=== PATIENT | male | born 1990 | race Caucasian/White ===

== ENCOUNTER 2017-08-31 10:21 | Day surgery (SDC) | payer OTHER ==
[2017-08-31] MEDS ORDERED: ceFAZolin 2 GM/SWFI 2 GM/20 ML SYR IVP ONE (10:29)
--- NOTE | 2017-08-31 10:31 | PDHPUP ---
History & Physical Update H&P update statement: This history and physical update is based on an assessment of the patient which was completed after admission or registration (within 24 hours), but prior to the surgery/procedure. H&P update: H&P reviewed & patient examined
[2017-08-31] MEDS ORDERED: LR 1,000 ML IV ONE (10:47)
[2017-08-31] MEDS ORDERED: LIDOCAINE 1% 2 ML INJ ID PRN (10:47)
--- NOTE | 2017-08-31 11:01 | PDANEPAE ---
ANE History of Present Illness right parotid tumor ANE Past Medical History - Cardiovascular History Hx Hypertension: No Hx Arrhythmias: No Hx Chest Pain: No Hx Coronary Artery / Peripheral Vascular Disease: No Hx CHF / Valvular Disease: No Hx Palpitations: No - Pulmonary History Hx COPD: No Hx Asthma/Reactive Airway Disease: No Hx Recent Upper Respiratory Infection: No Hx Oxygen in Use at Home: No Hx Sleep Apnea: No - Neurologic History Hx Cerebrovascular Accident: No Hx Seizures: No Hx Dementia: No - Endocrine History Hx Diabetes: No - Renal History Hx Renal Disorders: No - Liver History Hx Hepatic Disorders: No - Neurological & Psychiatric Hx Hx Neurological and Psychiatric Disorders: No - Cancer History Hx Cancer: No - Congenital Disorder History Hx Congenital Disorders: No - GI History Hx Gastrointestinal Disorders: No - Other Health History Other Health History: none - Chronic Pain History Chronic Pain: Yes (lower back) - Surgical History Prior Surgeries: none ANE Review of Systems Review of systems is: negative Review of Systems: - Exercise capacity Exercise capacity: >=4 METS METS (RN): 6 METS ANE Patient History - Allergies Allergies/Adverse Reactions: No Known Allergies Allergy (Verified 08/24/17 10:15) - Home Medications Home Medications: Ibuprofen [Motrin (*)] 200 - 600 mg PO DAILY PRN 08/24/17 [Last Taken 08/17/17] - NPO status NPO Status: no food or drink >8 hours - Anes Hx Anes Hx: no prior problems - Smoking Hx Smoking Status: Never smoked - Alcohol Use Alcohol Use: Occasionally - Family Anes Hx Family Anes Hx: none Family Hx Anesthesia Complications: none ANE Labs/Vital Signs - Vital Signs Vital Signs: reviewed preoperatively; see RN documention for details Height: 182.88 cm Weight: 70.307 kg ANE Physical Exam - Airway Neck exam: FROM Mallampati Score: Class 1 Mouth exam: normal dental/mouth exam - Pulmonary Pulmonary: no respiratory distress - Cardiovascular Cardiovascular: regular rate and rhythym - ASA Status ASA Status: I ANE Anesthesia Plan Anesthesia Plan: general endotracheal anesthesia
[2017-08-31] MEDS ORDERED: MIDAZOLAM 2 MG/2 ML VIAL IVP ONE (11:02)
[2017-08-31] MEDS ORDERED: MUPIROCIN 2% 22 GM OINT ONE (11:26)
[2017-08-31] MEDS ORDERED: LIDOCAINE 2% 5 ML SDV ONE (11:31)
[2017-08-31] MEDS ORDERED: fentaNYL 100 MCG/2 ML INJ ONE ×3 (11:32→15:09)
[2017-08-31] MEDS ORDERED: PROPOFOL 200 MG/20 ML VIAL ONE (11:32)
[2017-08-31] MEDS ORDERED: REMIFENTANIL HCL 1 MG VIAL ONE ×2 (11:32→13:37)
[2017-08-31] MEDS ORDERED: LIDO/EPI 1% **for epidural** 30 ML SDV ONE (11:40)
[2017-08-31] MEDS ORDERED: LIDO/EPI 2% **for epidural** 20 ML SDV ONE (11:41)
[2017-08-31] MEDS ORDERED: LIDO/EPI 1% **for epidural** 10 ML SDV ONE (11:42)
[2017-08-31] MEDS ORDERED: LIDO/EPI 2%** Not for Epidural 20 ML MDV ONE (11:42)
[2017-08-31] MEDS ORDERED: DEXAMETHASONE 4 MG/ML VIAL ONE ×3 (12:13)
[2017-08-31] MEDS ORDERED: ONDANSETRON 4 MG/2 ML VIAL ONE (14:11)
[2017-08-31] MEDS ORDERED: BACITRACIN ZINC 14.2 GM OINTTUBE TP ONE (14:25)
[2017-08-31] MEDS ORDERED: ACETAMINOPHEN 500 MG TAB PO PRN (14:56)
[2017-08-31] MEDS ORDERED: ONDANSETRON 4 MG/2 ML VIAL IVP PRN (14:56)
[2017-08-31] MEDS ORDERED: MEPERIDINE 25 MG/ML SYR IVP PRN (14:56)
[2017-08-31] MEDS ORDERED: PROMETHAZINE HCL 25 MG/ML INJ IVP PRN (14:56)
[2017-08-31] MEDS ORDERED: NALOXONE HCL 0.4 MG/ML INJ IVP PRN (14:56)
[2017-08-31] MEDS ORDERED: OXYCODONE/APAP 5/325 TAB PO PRN (14:56)
[2017-08-31] MEDS ORDERED: HYDROCODONE/APAP 5/325 TAB PO PRN (14:56)
[2017-08-31] MEDS ORDERED: ALBUTEROL 3 ML DEYVIAL IH PRN (14:56)
[2017-08-31] MEDS ORDERED: fentaNYL 100 MCG/2 ML INJ IVP PRN (14:56)
[2017-08-31] MEDS ORDERED: PHENYLEPHRINE HCL 100 MCG/ML SYR IVP PRN (14:56)
--- NOTE | 2017-08-31 14:56 | POSTANESTH ---
Post Anesthetic Evaluation Cardiovascular Status: Normal, Stable Respiratory Status: Normal, Stable Level of Consciousness/Mental Status: Can Participate in Eval Pain Control: Adequate, Prn Tx Ordered Nausea/Vomiting Control: Adequate, Prn Tx Ordered Complications Possibly Related to Anesthesia: None Noted
--- NOTE | 2017-08-31 15:01 | POSTOPPROG ---
Post Op Note Date of Operation: 08/31/17 Surgeon: Sarika Grady Demand Equipment Repairer: ME Sumit Anesthesiologist: Antwan Hernández MD Anesthesia: GET(General Endotracheal) Pre-op Diagnosis: R parotid tumor Post-op Diagnosis: same Procedure: R superficial parotidectomy, NIMs Facial nerve monitoring Findings: 2 cm firm, mass in tail of parotid R Inf/Abcess present in the surg proc area at time of surgery?: No EBL: Minimal Complications: none apparent Drains: Jame Craig
[2017-08-31 15:43] VITALS: TEMP 98.4
[2017-08-31 15:46] VITALS: BP 144/80; PULSE 91; RESP 17; O2SAT 96
[2017-08-31] MEDS ORDERED: HYDROCODONE/APAP 5/325 TAB ONE (16:43)
--- NOTE | 2017-09-04 03:38 | GOP ---
[f rep st] OPERATIVE REPORT DATE OF OPERATION: 08/31/2017 SURGEON: Sarika Grady MD TOOL DISTRIBUTOR: Jb Lew MD. ANESTHESIA: General. PREOPERATIVE DIAGNOSIS: Right superficial parotid mass. POSTOPERATIVE DIAGNOSIS: Right superficial parotid mass. PROCEDURE PERFORMED: 1. Right partial superficial parotidectomy. 2. Facial nerve monitoring using the [employer] NIM System. FINDINGS: The patient was found to have a 2 to 3 cm mass within the tail of the right parotid. It w as very firm but did not seem to be infiltrating any other tissues. The facial nerve was found and s timulated preoperatively as well as postoperatively. ESTIMATED BLOOD LOSS: Minimal. INDICATIONS: The patient is a very pleasant 27-year-old male who has a history of a right neck mass for at least 5 years, he thinks. It has not grown really at all, so he was not too concerned about i t. He was referred to me for evaluation, and this was felt to be a likely parotid mass. A CT scan w as done which showed this as well, and then FNA was done that showed a possible tumor or o ther benign lesion. It was felt he would benefit from the above procedure. DESCRIPTION OF PROCEDURE: The patient was first seen in the preoperative area where informed consent was obtained. He was then brought back to the operating room where Anesthesia sedated and intubated him. The bed was turned 90 degrees. A shoulder roll was placed. [place] time-out protocol was p erformed, and we all agreed on the patient as well as the plan. The facial nerve monitor was then pl aced using 2 probes. Once this was noted to be registering accurately, the patient was then prepped and draped in a sterile fashion. At this point, I then made a modified Mazin incision with electroca utery with a [place] tip Bovie on a low setting through the skin and subcutaneous tissues. This romana t down through the platysma inferiorly into the neck, and then the subplatysmal flap was elevated inf eriorly, and then this was continued over the parotid in a facemask plane. Once the flap was elevate d, the anterior border of the parotid, [place] hooks were used to retract this back and get better visualization of the parotid. At this point, posteriorly, we elevated the tissue slightly and retrac sera this as well to get better visualization. The great auricular nerve was found, and this was diss ected forward. The posterior branch of the great auricular nerve was saved. I then found the anteri or border of the SCM, and the SCM muscle was from the parotid tissue. Initially, I was goi ng to attempt to do a retrograde approach until the marginal mandibular branch of the facial nerve wa s found, and this began to be dissected posteriorly in a retrograde fashion a centimeter or two back from the point that it was found at the angle of the mandible. It was noted to be somewhat in a diff icult position between the very firm mass as well as the mandible. At this point, it was felt that i t would be safer to actually find the trunk of the facial nerve and do it in a more standard fashion. So at this point, the parotid tissue was dissected free from the tragal cartilage as well as the ybarra perior aspect of the SCM. The digastric muscle was also found. Once I had delineated these structur es, a tympanomastoid suture was found and palpated, and then we began bluntly dissecting in the same direction as the nerve until the nerve was found. This was stimulated with a nerve monitor to confir m that this was indeed the nerve, which it was. So at this point, the trunk of the facial nerve was dissected anteriorly until I came to the pes. The pes was located, and then the parotid tissue overl monroe this was divided using the Harmonic Focus. Once this was done, a Deni was placed on the supe rior and inferior aspects of parotid tissue that had been divided, and then the lower division was fo llowed using blunt dissection over the nerve keeping the nerve intact and in visualization throughout the procedure. We followed the inferior division until it split into the buccal branch as well as i nferiorly and then divided into the marginal mandibular branch. The buccal branch was dissected out until the parotid tissue overlying it was able to be dissected free, and the entire mass was encompas sed in this tissue. Once the buccal branch was dissected out, we then continued dissecting the honorio nal mandibular branch of the facial nerve. This was dissected anteriorly, and the parotid tissue was elevated inferiorly and anteriorly until the entire inferior half of the parotid was retracted and r eleased off the underlying nerve branches, and it was completely released from underlying tissues. A t this point, the tissue was sent for frozen section. During this time while we were waiting for the frozen, normal saline was used to copiously irrigate out the wound, and then it was suctioned clear. Any small bleeding vessels were cauterized using bipolar cautery. A Valsalva was given to confirm that there was no significant bleeding. A 10-Korean round silicone SOBIA drain was placed after a small amount of Surgicel was placed overlying the buccal and marginal mandibular branch of the facial nerv e. Of note, both of these nerves as well as the upper division stimulated with the nerve stimulator after the parotid was removed. I also reapproximated the fascia of the SCM as well as the parotid ti ssue with 3-0 Vicryl in interrupted fashion. The 10-Korean drain was exiting the posterior skin flap and sutured in place using 2-0 silk. At this point, we did get a call from the pathologist from the frozen. He stated that it did not look overtly malignant, that it did have normal cellular appearan ce, but the architecture of the tumor was somewhat odd. He deferred to make a final diagnosis. At t his point, it was felt that without a final diagnosis and without any overtly malignant features that this would end this portion of the procedure. So, at this point, the [place] retractors were rele ased. The platysma as well as subcutaneous tissues were closed using 3-0 Vicryl in interrupted fashi on, and then the skin was closed using a 5-0 nylon in a running fashion. Once this was done, the pat ient was cleaned. The nerve monitor was removed. The wound was covered with some bacitracin, and th en fluffs were placed over the parotid area, and then dressing was placed for compression. The drain was noted to be holding with bulb suction. At that point, the patient was turned back ov er to Anesthesia where he was awakened and extubated and taken to PACU in stable condition. There we re no complications, and he tolerated the procedure well. COMPLICATIONS: None. /[id number]/MODL
== END 2017-08-31 18:06 | disposition home or self-care (01) ==
LOC: FSGY 10:21 → F3E 10:21 → UNDOADMOB 10:21 → EDSTATUS 11:45 → FSGY 18:06
PROVIDERS: ATTEND Otolaryngology
DX: D11.0 Benign neoplasm of parotid gland (principal); M54.5 Low back pain
CPT/HCPCS: J0690; J1100; J2250; J2370; J2405; J2704; J3010

== ENCOUNTER → 2017-09-23 | Outpatient (CLI) | payer OTHER ==
[~2017-09-23] MED LIST: GADOBUTROL 10 ML VIAL IVP ONE
== END ==
LOC: FIMAGING 13:06
PROVIDERS: ATTEND Radiology Radiation Oncology
DX: Z08 Encounter for follow-up examination after completed treatment for malignant neoplasm (principal); Z85.858 Personal history of malignant neoplasm of other endocrine glands; R59.9 Enlarged lymph nodes, unspecified
CPT/HCPCS: A9585

== ENCOUNTER → 2017-10-20 | Outpatient (CLI) | payer OTHER | LOC: FIMAGING 13:13 | PROVIDERS: ATTEND Physician Assistant Medical | DX: M54.5 Low back pain (principal) ==

== ENCOUNTER 2018-01-02 10:54 | Emergency (ER) | payer OTHER ==
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
[2018-01-02 12:01] VITALS: BP 115/76
== END 2018-01-02 12:01 | disposition home or self-care (01) ==
DX: S51.812A Laceration without foreign body of left forearm, initial encounter (principal); S70.212A Abrasion, left hip, initial encounter; Z85.818 Personal history of malignant neoplasm of other sites of lip, oral cavity, and pharynx; V18.0XXA Pedal cycle driver injured in noncollision transport accident in nontraffic accident, initial encounter; Y99.8 Other external cause status

== ENCOUNTER 2018-01-05 09:44 | Emergency (ER) | payer OTHER ==
[2018-01-06 04:07] VITALS: BP 118/76
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
== END 2018-01-05 10:30 | disposition home or self-care (01) ==
DX: Z48.01 Encounter for change or removal of surgical wound dressing (principal); S51.812D Laceration without foreign body of left forearm, subsequent encounter; Z85.858 Personal history of malignant neoplasm of other endocrine glands; W18.09XD Striking against other object with subsequent fall, subsequent encounter
CPT/HCPCS: G0463

== ENCOUNTER → 2018-11-26 | Outpatient (CLI) | payer OTHER | LOC: FIMAGING 06:41 | PROVIDERS: ATTEND Otolaryngology | DX: R22.0 Localized swelling, mass and lump, head (principal) | CPT/HCPCS: A9585 ==